=== PATIENT | male | born 1960 | race Caucasian/White ===

== ENCOUNTER 2018-11-20 09:55 | Inpatient (IN) ==
[2018-11-20] MEDS ORDERED: Dextrose 50% in Water 50 ML Vial IV.PUSH PRN (16:16)
[2018-11-20] MEDS ORDERED: Acetaminophen 325 MG Tablet PO PRN (16:17)
[2018-11-20] MEDS: Insulin NovoLOG Aspart Correctional Sugar Inj SQ SCH (17:12)
[2018-11-20] MEDS ORDERED: Gadobutrol PF 10 MMOL/10 ML Vial (for RAD) IV.SIG ONE (18:09)
--- NOTE | 2018-11-20 18:17 | P.HP ---
History of Present Illness Service: CP hospitalist Primary Care Physician: UNKNOWN Chief Complaint: numbness left side face 3 days History of Present Illness: 58 y/o male with history of diabetes ,hypertension,gout who started about 3 days ago having numbness left side of face ,with difficulty drinking or retaining saliva . No other symptoms,denies headache ,nausea vomit ,syncope ,, any weakness to extremities. Patient was concerned and presented to [facility] in [place] and was evaluated by them with negative CXR,CT HEAD,ekg ,lab work negative except for glucose 222 ,patient somewhat non compliant with diet. The ER was concerned for possible CVA and sent him to [facility] for further evaluation and was excepted for admit by [facility] and when on floor found to be CP and notified us. Patient on exam slight facial droop with continued numbness. Will admit for further evaluation. Note patient last A1C >7.5 and just added new diabetic med ,sounds like a substitute for trajenta . - Diagnosis (1) Acute CVA (cerebrovascular accident) (2) Perry palsy (3) Diabetes (4) Hypertension Inpatient Certification: I certify that the inpatient services were ordered in accordance with Medicare regulations governing the order. This includes certification that hospital inpatient services are reasonable and necessary and in the case of services not specified as inpatient-only under 42 CFR 419.22(n), that they are appropriately provided as inpatient services in accordance to with the 2-midnight benchmark under 43 CFR 412.3(e) Estimated Total Length of Stay (Days): 3 Plans for Post Hospital Care: Not yet determined Review of Systems All other systems reviewed negative except as stated in HPI [facility] - History History Provided By: Patient - Medical History Medical History: Medical History (Last Reviewed 11/20/18 @ 18:11 by Rei Presley MD) Diabetes Gout HTN (hypertension) - Surgical History Surgical History: Surgical History (Last Reviewed 11/20/18 @ 18:11 by Rei Presley MD) No history of previous surgery - Tobacco History Smoking Status: Former smoker - Alcohol History How Often Do You Have a Drink Containing Alcohol: Never - Substance Use History Substance History: Active Abuse Medications and Allergies Active Medications: Active Medications Acetaminophen (Tylenol) 650 mg PO Q4H PRN PRN Reason: Temp > 100.4 Al Hydroxide/Mg Hydroxide (Milk Of Magnesia Liq) 30 ml PO Q12H PRN PRN Reason: Mild Constipation Allopurinol (Zyloprim) 300 mg PO DAILY [facility] Amlodipine Besylate (Norvasc) 10 mg PO DAILY [facility] Dextrose (D50w Vial) 50 ml IV.PUSH UNSCH PRN PRN Reason: PER HYPOGLYCEMIA PROTOCOL Glimepiride (Amaryl) 1 mg PO DAILY [facility] Glucagon (Glucagon Inj) 1 mg OTHER PRN PRN PRN Reason: for Hypoglycemia Protocol Insulin Aspart (Novolog Insulin Correctional Sugar Inj) 0 unit SQ Q6HR [facility]; Protocol Last Admin: 11/20/18 17:12 Dose: Not Given Metformin HCl (Glucophage) 1,000 mg PO BID [facility] Metoprolol Tartrate (Lopressor) 100 mg PO DAILY [facility] Ondansetron HCl (Zofran Inj) 4 mg IV.PUSH Q6H PRN PRN Reason: NAUSEA OR VOMITING Pantoprazole Sodium (Protonix) 20 mg PO DAILY [facility] Senna/Docusate Sodium (Eleanor-Colace) 1 tab PO BID [facility] Sennosides (Senokot) 17.2 mg PO Q12H PRN PRN Reason: Moderate Constipation Sodium Chloride (Ns Flush) 2 ml IV.FLUSH BID [facility] Sodium Chloride (Ns Flush) 2 ml IV.FLUSH PRN PRN PRN Reason: FLUSH AFTER USING IV ACCESS Allergies Allergy/AdvReac Type Severity Reaction Status Date / Time No Known Allergies Allergy Verified 11/20/18 10:06 Home Medications Medication Instructions Recorded Confirmed Type allopurinol 300 mg PO DAILY 11/20/18 11/20/18 History amlodipine 10 mg PO DAILY 11/20/18 11/20/18 History glimepiride 1 mg PO QAM 11/20/18 11/20/18 History metformin 1,000 mg PO BID 11/20/18 11/20/18 History metoprolol tartrate 100 mg PO DAILY 11/20/18 11/20/18 History omeprazole 20 mg PO DAILY 11/20/18 11/20/18 History Exam Vital signs: Vital Signs 11/20/18 16:40 Pulse Oximetry 96 Intake & Output 11/19/18 11/20/18 11/20/18 18:59 06:59 18:59 Other: Date of Last Bowel Movement 11/20/18 Narrative: GENERAL: SKIN: Warm and dry. HEAD: Normocephalic. slight left facial droop EYES: No scleral icterus. No injection or drainage. NECK: Supple, trachea midline. No JVD or lymphadenopathy. CARDIOVASCULAR: Regular rate and rhythm without murmurs, gallops, or rubs. RESPIRATORY: Breath sounds equal bilaterally. No accessory muscle use. GASTROINTESTINAL: Abdomen soft, non-tender, nondistended. MUSCULOSKELETAL: No cyanosis, or edema. BACK: Nontender without obvious deformity. No CVA tenderness.neuro CN overall intake some facial dysymetry no focal extremity abnormalities. Results - Labs Labs: Laboratory Results - last 24 hr 11/20/18 15:42 POC Glucose 121 Caprini VTE Risk Assessment Caprini VTE Risk Assessment: Moderate/High Risk (score >= 2) Caprini Risk Assessment Model: Point Value = 1 Point Value = 2 Point Value = 3 Point Value = 5 Age 41-60 Minor surgery BMI > 25 kg/m2 Swollen legs Varicose veins or History of unexplained or recurrent spontaneous Oral contraceptives or hormone replacement Sepsis (< 1 month) Serious lung disease, including pneumonia (< 1 month) Abnormal pulmonary function Acute myocardial infarction Congestive heart failure (< 1 month) History of inflammatory bowel disease Medical patient at bed rest Age 61-74 Arthroscopic surgery Major open surgery (> 45 min) Laparoscopic surgery (> 45 min) Malignancy Confined to bed (> 72 hours) Immobilizing plaster cast Central venous access Age >= 75 History of VTE Family history of VTE Factor V Leiden Prothrombin [id number] Lupus anticoagulant Anticardiolipin antibodies Elevated serum homocysteine Heparin-induced thrombocytopenia Other congenital or acquired thrombophilia Stroke (< 1 month) Elective arthroplasty Hip, pelvis, or leg fracture Acute spinal cord injury (< 1 month) Prophylaxis Regimen: Total Risk Factor Score Risk Level Prophylaxis Regimen 0-1 Low Early ambulation 2 Moderate Order ONE of the following: *Sequential Compression Device (SCD) *Heparin 5000 units SQ BID 3-4 Higher Order ONE of the following medications: *Heparin 5000 units SQ TID *Enoxaparin/Lovenox 40 mg SQ daily (WT < 150 kg, CrCl > 30 mL/min) *Enoxaparin/Lovenox 30 mg SQ daily (WT < 150 kg, CrCl > 10-29 mL/min) *Enoxaparin/Lovenox 30 mg SQ BID (WT < 150 kg, CrCl > 30 mL/min) AND/OR *Sequential Compression Device (SCD) 5 or more Highest Order ONE of the following medications: *Heparin 5000 units SQ TID (Preferred with Epidurals) *Enoxaparin/Lovenox 40 mg SQ daily (WT < 150 kg, CrCl > 30 mL/min) *Enoxaparin/Lovenox 30 mg SQ daily (WT < 150 kg, CrCl > 10-29 mL/min) *Enoxaparin/Lovenox 30 mg SQ BID (WT < 150 kg, CrCl > 30 mL/min) AND *Sequential Compression Device (SCD) Assessment and Plan - Assessment (1) Acute CVA (cerebrovascular accident) Code(s): I63.9 - Cerebral infarction, unspecified Status: Acute Plan: considered seen patient with neurology ,symptoms more consistent with perry's palsy will get MRI if negative treat as bells palsy (2) Perry palsy Code(s): G51.0 - Perry's palsy Status: Acute Plan: plan prednisone 60 mg daily for 1 week and acylovir 1 gm tid for 1 week (3) Diabetes Code(s): E11.9 - Type 2 diabetes mellitus without complications Status: Acute Plan: continue home medications (4) Hypertension Code(s): I10 - Essential (primary) hypertension Status: Acute Plan: continue home medications - Plan based on MRI and seeing how patient feels tomorrow possible discharge in AM. Code Status: full Discussed Condition With: patient
--- NOTE | 2018-11-20 18:45 | MR ---
EXAM DATE: 11/20/2018 6:25 PM EST AGE/SEX: 58 years / Male INDICATIONS: . Facial numbness. CLINICAL DATA: This is the patient's initial encounter. Patient reports that signs and symptoms have been present for 1 day and indicates a pain score of 0/10. MEDICAL/SURGICAL HISTORY: Hypertension. Diabetes mellitus type II. None. COMPARISON: [facility], CT HEAD W/O CONTRAST, 11/20/2018. . TECHNIQUE: Multiplanar, multisequence examination of the brain was performed without and with 9 ml Ga davist (gadobutrol) contrast as a single exam dose. FINDINGS: Cerebrum: The ventricles are normal for age. No evidence of midline shift, mass lesion, hemorrhage or acute infarction. No extraaxial fluid collections are seen. The pituitary gland and suprasellar cistern are normal in configuration. White Matter: No significant signal abnormalities are seen in the white matter. Posterior Fossa: The cerebellum and brainstem are intact. The 4th ventricle is midline. The cerebel lopontine angle is unremarkable. The cerebellar tonsils are normal in position. Diffusion Imaging: No focal areas of restricted diffusion are seen. No evidence of acute infarction . Extracranial: The visualized portions of the orbits and paranasal sinuses are unremarkable. Post Contrast: No abnormal areas of parenchymal or dural enhancement. No evidence of blood-brain ba rrier breakdown. CONCLUSION: 1. Negative MRI of the brain with and without contrast. Electronically signed by: Selwyn Singh MD Board Certified Radiologist 11/20/2018 6:43 PM EST
[2018-11-20] MEDS: predniSONE 10 MG Tablet PO SCH (20:08)
[2018-11-20] MEDS: Senna/Docusate Sodium 8.6/50 MG Tablet PO SCH (20:09)
[2018-11-20 21:18] VITALS: RESP 18
[2018-11-20] MEDS: Acyclovir 200 MG Capsule PO SCH (22:10)
[2018-11-21] MEDS: Insulin NovoLOG Aspart Correctional Sugar Inj SQ SCH ×2 (00:20→07:27)
[2018-11-21] MEDS: Acyclovir 200 MG Capsule PO SCH (07:18)
[2018-11-21 07:45] LABS: Baso # (Auto) 0.1 th/mm3 (0.0-0.2); Baso % (Auto) 1.3 % (0.0-2.0); Eos % (Auto) 0.2 % (0.0-4.0); Hemoglobin 15.3 gm/dL (13.0-17.0); Lymph # (Auto) 2.1 th/mm3 (1.0-4.8); Lymph % (Auto) 26.7 % (9.0-44.0); Mean Corpuscular Hemoglobin 30.8 pg (27.0-34.0); Mean Corpuscular Volume 90.6 fL (80.0-100.0); Mean Platelet Volume 10.1 fL (7.0-11.0); Mono # (Auto) 0.4 th/mm3 (0.0-0.9); Mono % (Auto) 5.4 % (0.0-8.0); Neut # (Auto) 5.1 th/mm3 (1.8-7.7); Neut % (Auto) 66.4 % (16.0-70.0); Platelet Count 191 th/mm3 (150-450); Red Blood Count 4.96 mil/mm3 (4.50-5.90); Red Cell Distribution Width 12.6 % (11.6-17.2); White Blood Count 7.7 th/mm3 (4.0-11.0)
[2018-11-21 08:04] VITALS: BP 140/98; PULSE 91; TEMP 96.2; O2SAT 98
[2018-11-21 08:08] LABS: Chloride 103 meq/L (98-107); Potassium 3.9 meq/L (3.5-5.1); Sodium 139 meq/L (136-145)
[2018-11-21] MEDS: predniSONE 10 MG Tablet PO SCH (08:09)
[2018-11-21] MEDS: Senna/Docusate Sodium 8.6/50 MG Tablet PO SCH (08:10)
[2018-11-21 08:11] LABS: Calcium 9.3 mg/dL (8.5-10.1)
[2018-11-21 08:12] LABS: Anion Gap 9 meq/L (5-15); Blood Urea Nitrogen 11 mg/dL (7-18); Carbon Dioxide 26.6 meq/L (21.0-32.0); Glucose,Random 204 mg/dL (74-106)
[2018-11-21 08:15] LABS: Glomerular Filtration Rate Greater Than 89 mL/min (>89)
[2018-11-21] MEDS ORDERED: Pantoprazole Sodium 20 MG DR Tablet PO SCH (09:00)
[2018-11-21] MEDS ORDERED: amLODIPine 10 MG Tablet PO SCH (09:00)
[2018-11-21] MEDS ORDERED: Allopurinol 300 MG Tablet PO SCH (09:00)
[2018-11-21] MEDS ORDERED: Metoprolol Tartrate 100 MG Tablet PO SCH (09:00)
[2018-11-21] MEDS ORDERED: Glimepiride 1 MG Tablet PO SCH (09:00)
--- NOTE | 2018-11-21 10:54 | P.DS ---
Date of admission: 11/20/18 16:23 Primary care physician: UNKNOWN Attending physician on discharge: Rei Presley Anticipated date of discharge: 11/21/18 Brief History from admission: 58 y/o male with history of diabetes ,hypertension,gout who started about 3 days ago having numbness left side of face ,with difficulty drinking or retaining saliva . No other symptoms,denies headache ,nausea vomit ,syncope ,, any weakness to extremities. Patient was concerned and presented to [place] [facility] in [place] and was evaluated by them with negative CXR,CT HEAD,ekg ,lab work negative except for glucose 222 ,patient somewhat non compliant with diet. The ER was concerned for possible CVA and sent him to [facility] for further evaluation and was excepted for admit by [facility] and when on floor found to be CP and notified us. Patient on exam slight facial droop with continued numbness. Will admit for further evaluation. Note patient last A1C >7.5 and just added new diabetic med ,sounds like a substitute for trajenta . Patient update on day of discharge: MRI brain negative discharge today DS: Diagnosis - Discharge Diagnosis (1) Perry palsy Status: Acute (2) Diabetes Status: Acute (3) Hypertension Status: Acute DS: Summary Hospital Course: Patient admitted with ? cva ,seen together with neurology and both feel patient has bells palsy ,started on prednisone 30 bid for 1 week and acylvir 1 gm tid for 1 week ,and to continue all his po medications for diabetes and blood pressure . Discussion about diet regarding diabetes,patient states will be more compliant. - Time Spent with Patient Total time spent providing and/or coordinating discharge services: Greater than 30 minutes - Quality: VTE Deep Vein Thrombosis/Pulmonary Embolism Present on Admission: No Exam Vital signs: Vital Signs 11/20/18 16:40 11/20/18 19:30 11/20/18 21:16 Temperature 97.3 F L Pulse Rate 61 Respiratory Rate 18 Blood Pressure 143/76 H Pulse Oximetry 96 98 95 11/21/18 00:25 11/21/18 08:00 Temperature 97.0 F L 96.2 F L Pulse Rate 56 L 91 H Respiratory Rate 18 18 Blood Pressure 138/72 140/98 H Pulse Oximetry 97 98 Intake & Output 11/20/18 11/21/18 11/21/18 18:59 06:59 18:59 Intake Total 360 / 360 Balance 360 / 360 Intake: Oral 360 / 360 Other: # Voids 2 Date of Last Bowel Movement 11/20/18 Narrative: GENERAL: speech normal SKIN: Warm and dry. HEAD: Normocephalic. slight left facial droop EYES: No scleral icterus. No injection or drainage. NECK: Supple, trachea midline. No JVD or lymphadenopathy. CARDIOVASCULAR: Regular rate and rhythm without murmurs, gallops, or rubs. RESPIRATORY: Breath sounds equal bilaterally. No accessory muscle use. GASTROINTESTINAL: Abdomen soft, non-tender, nondistended. MUSCULOSKELETAL: No cyanosis, or edema. BACK: Nontender without obvious deformity. No CVA tenderness.neuro CN overall intake some facial dysymetry no focal extremity abnormalities. Results Procedures completed during hospitalization: MRI brain Labs on day of discharge: Labs from last 24 hours 11/21/18 11/21/18 11/21/18 07:23 06:57 06:57 CBC w Diff Auto diff final WBC 7.7 RBC 4.96 Hgb 15.3 Hct 45.0 MCV 90.6 MCH 30.8 MCHC 34.0 RDW 12.6 Plt Count 191 MPV 10.1 Neut % (Auto) 66.4 Lymph % (Auto) 26.7 [place] % (Auto) 5.4 Eos % (Auto) 0.2 Baso % (Auto) 1.3 Neut # (Auto) 5.1 Lymph # (Auto) 2.1 [place] # (Auto) 0.4 Eos # (Auto) 0.0 Baso # (Auto) 0.1 WBC Differential . Differential Comment . Sodium 139 Potassium 3.9 Chloride 103 Carbon Dioxide 26.6 Anion Gap 9 BUN 11 Creatinine 0.82 Estimated GFR Greater than 89 POC Glucose 176 Random Glucose 204 H Calcium 9.3 11/21/18 11/20/18 00:14 15:42 CBC w Diff WBC RBC Hgb Hct MCV MCH MCHC RDW Plt Count MPV Neut % (Auto) Lymph % (Auto) [place] % (Auto) Eos % (Auto) Baso % (Auto) Neut # (Auto) Lymph # (Auto) [place] # (Auto) Eos # (Auto) Baso # (Auto) WBC Differential Differential Comment Sodium Potassium Chloride Carbon Dioxide Anion Gap BUN Creatinine Estimated GFR POC Glucose 193 121 Random Glucose Calcium - Impressions ITS Impressions Head MRI 11/20/18 00:00 CONCLUSION: 1. Negative MRI of the brain with and without contrast. Discharge Plan - Discharge Disposition Patient Disposition: Discharge Home - Discharge Condition Condition: Good - Discharge Order Discharge Orders: Discharge Order (Routine); Ordered 11/21/18 Ordered By: Rei Presley - Discharge Details Anticipated Discharge Date: 11/21/18 Discharge Comment: home meds called in to patient pharmacy acyclovir 1 gm tid for 1 week,prednisone 30 bid for 1 week - Physicians Team Primary Care Provider: UNKNOWN, Attending Provider: Rei Presley Other Providers: Angel Qureshi MD - Rxs /Orders / Referrals /Forms Prescriptions: New acyclovir 200 mg Capsule 1,000 mg PO Q8HR RF: 0 prednisone 10 mg Tablet 30 mg PO BID RF: 0 Continue allopurinol 300 mg Tablet 300 mg PO DAILY amlodipine 10 mg Tablet 10 mg PO DAILY glimepiride 1 mg Tablet 1 mg PO QAM metformin 1,000 mg Tablet 1,000 mg PO BID metoprolol tartrate 100 mg Tablet 100 mg PO DAILY omeprazole 20 mg Capsule,Delayed Release(Dr/Ec) 20 mg PO DAILY saxagliptin 5 mg Tablet 5 mg PO HS Referrals: UNKNOWN, [Primary Care Provider] - See Instructions
--- NOTE | 2018-11-21 13:41 | MB ---
cc: Angel Qureshi MD DATE: 11/20/2018 REASON FOR CONSULTATION: TIA. HISTORY OF PRESENT ILLNESS: Mr. Barton is a 58-year-old male with a past medical history of diabetes, hypertension, gout, who presented to the [facility] [place] for 3 days with numbness of the left side of the face, and tightness of the muscle, and inability to spit out when he brushed his teeth and washes the mouth. Also had some difficulty in drinking and retaining his saliva. Denies headache, double vision, blurred vision, sensitivity to sound, rash, weakness of an extremity. REVIEW OF SYSTEMS: A 12-point review of systems negative, except what is stated in the HPI. PAST MEDICAL HISTORY: Diabetes, gout, hypertension. PAST SURGICAL HISTORY: Noncontributory. SOCIAL HISTORY: Former smoker, does not drink alcohol. MEDICATIONS: Acetaminophen, aluminum hydroxide, allopurinol, amlodipine, dextrose, metformin, metoprolol, pantoprazole. ALLERGIES: NO KNOWN ALLERGIES. PHYSICAL EXAMINATION: GENERAL: Awake, alert, oriented sits by the side of the bed, not in acute distress. HEENT: Atraumatic, normocephalic. Intact hearing, intact vision. Mild facial asymmetry. NECK: Supple. No signs of meningeal irritation. CARDIOVASCULAR: Regular rate and rhythm. RESPIRATORY: Clear to auscultation. No wheezes. GASTROINTESTINAL: Soft abdomen. Nontender. MUSCULOSKELETAL: Moves extremities equally. NEUROLOGIC: Awake, alert, oriented to time, person, and place. Pupils equal and reactive. Mild right facial weakness, and inability to completely close the eye on the right side, unable to retain air on the right side of the face, unable to tightly seal lip on the right side. No sensory changes. Asymmetrical smile. Weakness on the right side. Extremities 5/5 throughout. Intact cerebellar function. Intact sensation. Reflexes 2+, bilaterally symmetrical. IMAGING: MRI brain negative for any acute intracranial process. ASSESSMENT: 1. Right-sided Perry palsy. 2. Hypertension. 3. Diabetes. PLAN: 1. Start prednisone 60 mg daily for 1 week. 2. Acyclovir 1 gram, 3 times daily for 1 week. 3. Physical therapy. 4. Tight control of blood pressure and diabetes. The patient is stable from neurology standpoint. He can be discharged and followup with outpatient neurology. I discussed the case with the attending physician. Thank you for allowing me to participate in the care of your patient. MD ELENO Alcaraz/negro/magalie , 10:31 PM , 10:38 PM DMITRI
== END 2018-11-21 11:30 | disposition home or self-care (01) | DRG 74 ==
LOC: PHEDDLT 09:55 → PH3 09:55
PROVIDERS: ADMIT Internal Medicine; ATTEND Internal Medicine
CPT/HCPCS: 70450; 70553; 71010; 71045; 80048; 80053; 82948; 82962; 84484; 85025; 93005; 99291; A9585; J1815; J7506; J7512